=== PATIENT | female | born 1945 | race African-American/Black ===

== ENCOUNTER 2019-06-08 06:11 | Emergency (ER) | payer BC ==
[~2019-06-08] VITALS: Ht 157.5 cm; Wt 82.0 kg
[~2019-06-08 06:11] MED LIST: ASPI325T8 PO; FAMO20TA5 PO; FURO-68 PO; GABA-585 PO; LOSA-73 PO; METF500T11 PO; OMEG1CAP6 PO; VERA240C4 PO
[2019-06-08] MEDS ORDERED: NAPR-695 PO ×2 (07:34→08:42)
--- NOTE | 2019-06-08 07:34 | PHYS DOC ---
Past Medical History Past Medical History: Arthritis, Diabetes-Type II, Hypertension Past Surgical History: Hysterectomy Smoking Status: Former Smoker Alcohol Use: None Drug Use: None Adult General Chief Complaint Chief Complaint: KNEE INJURY HPI HPI 73-year-old female presents with report of right knee pain. Patient reports she slipped in the kitchen and fell landing on right knee at approximately 1730 yesterday evening. Patient denies head trauma. Denies neck pain. Denies loss of consciousness. Patient denies any significant swelling of her knee a reports th ere is some pain especially with ambulation. Patient denies any other issues. Patient does report known arthritis in that knee. Review of Systems Review of Systems Constitutional: Denies fever or chills Eyes: Denies redness or eye pain HENT: Denies nasal congestion or sore throat Respiratory: Denies cough or shortness of breath Cardiovascular: Denies chest pain or palpitations GI: Denies abdominal pain, nausea, or vomiting : Denies dysuria or hematuria Musculoskeletal: Denies back pain; reports right knee pain Integument: Denies rash or skin lesions Neurologic: Denies headache, focal weakness or sensory changes Complete systems were reviewed and found to be within normal limits, except as documented in this note. Current Medications Current Medications Current Medications Medications (Trade) Dose Ordered Sig/Kamilla Start Time Stop Time Status Last Admin Dose Admin Naproxen (Naprosyn) 250 mg 1X ONCE 06/08/19 08:45 06/08/19 08:46 DC 06/08/19 08:39 250 MG Allergies Allergies Allergies Coded Allergies Type Severity Reaction Last Updated Verified No Known Drug Allergies 12/08/13 No Physical Exam Physical Exam Constitutional: Well developed, well nourished, no acute distress, non-toxic appearance HENT: Normocephalic, atraumatic, oropharynx moist Eyes: Conjunctiva normal, no discharge Neck: Normal range of motion, no tenderness, supple Cardiovascular: Heart rate normal, regular rhythm Lungs & Thorax: Bilateral breath sounds clear to auscultation, no wheezing Skin: Warm, dry, no erythema, no rash Extremities: Right knee tenderness with ROM, NO focal tenderness, no ecchymosis or significant swelling noted Neurologic: Alert and oriented X 3, normal motor function, normal sensory function, no focal deficits noted Psychologic: Affect normal, judgment normal Current Patient Data Vital Signs Vital Signs Date Time Temp Pulse Resp B/P (MAP) Pulse Ox O2 Delivery O2 Flow Rate FiO2 06/08/19 08:54 98 147/83 (104) 98 Room Air 06/08/19 07:05 98.9 16 98.9 EKG EKG [] Radiology/Procedures Radiology/Procedures PROCEDURE: KNEE RIGHT 3V KNEE RIGHT 3V History: Fall last night Comparison: None. Findings: 3 views the right knee are submitted. There is ossific fragment lateral to the lateral femoral condyle and there is a bony defect of the lateral, superior tibial plateau. There is some adjacent soft tissue opacity. There is also possible horizontally oriented fracture extending more medially of the lateral tibial plateau. There is moderate to severe narrowing of the medial compartment joint space with associated osteophyte formation. There is mild degenerative change of the patellofemoral articulation, also patellar enthesophytes. Impression: 1. Bone fragment lateral to the right lateral femoral condyle is likely due to acute avulsed bone fragment from the lateral aspect of the tibial plateau, also likely more horizontally oriented fracture of the lateral tibial plateau extending more medially. 2. There is osteoarthritic change greatest of lateral compartment. Electronically signed by: Mitch Muñoz MD (06/08/2019 7:30 AM) [id number] Course & Med Decision Making Course & Med Decision Making Pertinent Imaging studies reviewed. (See chart for details) Patient presents status post fall with subsequent right knee pain. Patient does report history of known arthritis to that knee. X-ray obtained. There was concern from radiology there might be lateral tibial plateau involvement however fracture fragment appears old. Patient with significant amount of arthritis. Discussed case with Dr. Mota (orthopedics) who reviewed XR images himself. Dr. Mota in agreement that images more consistent for arthritic joint with old joint. Recommends BEBO bandage, pain management, and follow up in the office. BEBO applied. Pain addressed. Patient stable for discharge with outpatient follow-up with PCP/orthopedics. Referral to Dr. Mota provided.. Discussed findings and plan with patient and family, who acknowledge understanding and agreement. Dragon Disclaimer Dragon Disclaimer This electronic medical record was generated, in whole or in part, using a voice recognition dictation system. Splinting Splinting : Location: Right knee Pre-Made Type: BEBO bandage Pre-Proc Neuro Vasc Exam: normal Post-Proc Neuro Vasc Exam: normal, unchanged from pre-exam Departure Departure Impression: Primary Impression: Contusion of right knee Additional Impression: Arthritis Disposition: 01 HOME, SELF-CARE Condition: STABLE Referrals: TIP SERRATO (PCP) JONAH MOTA MD Patient Instructions: Arthritis, Nonspecific, [id number], Contusion, [id number], Knee Sprain, [id number], Knee Wraps (Elastic Bandage) and RICE Additional Instructions: USE walker or cane at home for support with ambulation. Scripts Naproxen (NAPROXEN) 375 Mg Tablet 375 MG PO TID PRN PRN for PAIN, #30 Prov: VIKY ZAVALA DO 06/08/19 Problem Qualifiers Primary Impression: Contusion of right knee Encounter type: initial encounter Qualified Codes: S80.01XA - Contusion of right knee, initial encounter VIKY ZAVALA DO Jun 08, 2019 07:34
[2019-06-08] MEDS ORDERED: NAPROXEN 250 MG TABLET PO ONE ×2 (07:45→08:45)
[2019-06-08 08:54] VITALS: BP 147/83
== END 2019-06-08 08:54 | disposition home or self-care (01) ==
LOC: ER 06:11
DX: S80.01XA Contusion of right knee, initial encounter (principal); M17.11 Unilateral primary osteoarthritis, right knee; E11.9 Type 2 diabetes mellitus without complications; I10 Essential (primary) hypertension; Z90.710 Acquired absence of both cervix and uterus; Z87.891 Personal history of nicotine dependence; W01.0XXA Fall on same level from slipping, tripping and stumbling without subsequent striking against object, initial encounter; Y93.89 Activity, other specified; Y92.090 Kitchen in other non-institutional residence as the place of occurrence of the external cause; Y99.8 Other external cause status
CPT/HCPCS: 73562; 99283